=== PATIENT | male | born 1965 | race Hispanic/Latino ===

== ENCOUNTER → 2018-10-30 | Outpatient (REF) ==
[~2018-10-30] MED LIST: BLOOD PRESSURE MED; CHOLESTEROL MED; DIABETIC MEDICATION; GLYBURIDE; LISINOPRIL10 MG PO; LOVASTATIN10 M1 PO; PREDNISONE5 MG PO
== END | disposition home or self-care (01) | DRG 951 ==
LOC: PAGE 15:00
PROVIDERS: ATTEND Nurse Practitioner Family
DX: Z02.9 Encounter for administrative examinations, unspecified (principal)

== ENCOUNTER 2020-11-23 11:41 | Emergency (ER) | payer SELFPAY ==
[2020-11-23 13:40] VITALS: BP 148/78
[2020-11-23] MEDS ORDERED: KEFLEX500 M1 PO (13:44)
[2020-11-23] MEDS ORDERED: LEVOTHYROXIN125 MC1 PO (13:51)
[2020-11-23] MEDS ORDERED: GLIPIZIDE10 M2 PO (13:52)
[2020-11-23] MEDS ORDERED: LISINOP/HCTZ1 TAB PO (13:52)
== END 2020-11-23 13:40 | disposition home or self-care (01) | DRG 605 ==
LOC: ED 11:41
PROC: 0HQFXZZ Repair Right Hand Skin, External Approach (ICD-10-PCS; principal; 2020-11-23)
DX: S61.011A Laceration without foreign body of right thumb without damage to nail, initial encounter (principal); E11.9 Type 2 diabetes mellitus without complications; I10 Essential (primary) hypertension; W26.0XXA Contact with knife, initial encounter; Z79.84 Long term (current) use of oral hypoglycemic drugs

== ENCOUNTER 2020-12-01 | Emergency (ER) | payer SELFPAY ==
[~2020-12-01] MED LIST changes: +GLIPIZIDE10 M2 PO; +KEFLEX500 M1 PO; +LEVOTHYROXIN125 MC1 PO; +LISINOP/HCTZ1 TAB PO
== END 2020-12-01 13:40 | disposition home or self-care (01) | DRG 950 ==
DX: S61.011D Laceration without foreign body of right thumb without damage to nail, subsequent encounter (principal); X58.XXXD Exposure to other specified factors, subsequent encounter; E11.9 Type 2 diabetes mellitus without complications; I10 Essential (primary) hypertension; Z79.84 Long term (current) use of oral hypoglycemic drugs